=== PATIENT | female | born 1980 | race Caucasian/White ===

== ENCOUNTER 2024-12-27 06:33 | Day surgery (SDC) | payer BC, SELFPAY | END 2024-12-27 08:41 | disposition home or self-care (01) | LOC: GI 06:33 | PROVIDERS: ATTENDING PHYSICIAN Internal Medicine | DX: Z12.11 Encounter for screening for malignant neoplasm of colon (principal); K64.4 Residual hemorrhoidal skin tags; K62.1 Rectal polyp | CPT/HCPCS: 45380; 88305 ==